=== PATIENT | male | born 2000 | race Caucasian/White ===

== ENCOUNTER 2022-10-13 18:45 | Emergency (ER) | payer OTHER ==
[2022-10-13 18:53] VITALS: BP 151/94
--- NOTE | 2022-10-13 18:53 | ED Physician Documentation ---
PD HPI LOWER EXT INJURY - Stated complaint Stated Complaint: R TOE INJ - Chief complaint Chief Complaint: Trauma Ext - History obtained from History obtained from: Patient (He was running in his house last night and jammed his right small toe into a door frame accidentally and has persistent pain and bruising there.) PD PAST MEDICAL HISTORY - Present Medications Home Medications: Ambulatory Orders Medication Instructions Recorded Confirmed No Known Home Medications 10/13/22 10/13/22 - Allergies Allergies/Adverse Reactions: Allergies Allergy/AdvReac Type Severity Reaction Status Date / Time No Known Drug Allergies Allergy Verified 10/13/22 18:52 PD ED PE NORMAL - Vitals Vital signs reviewed: Yes - General General: Alert and oriented X 3, No acute distress - Extremities Extremities: Other (Tender and swollen to the proximal pinky toe of the right foot. Bruise there as well. No deformity.) - Neuro Neuro: Alert and oriented X 3, Normal speech Results - Vitals Vitals: Vital Signs - 24 hr 10/13/22 18:50 Temperature 37 C Heart Rate 101 H Respiratory 14 Rate Blood Pressure 151/94 H O2 Saturation 98 Oxygen O2 Source Room air - Rads (name of study) Three-view x-ray of the right small toe demonstrates nondisplaced fracture of the proximal phalanx. Radiology: Final report received, EMP read indepedently Procedures - General procedure General procedure: Right fourth and fifth toes were paulina's taped in standard fashion for comfort. Departure - Departure Disposition: 01 Home, Self Care Clinical Impression: Toe fracture, right Qualifiers: Encounter type: initial encounter Toe: lesser toe Fracture type: closed Phalanx: proximal Fracture alignment: nondisplaced Qualified Code(s): S92.514A - Nondisplaced fracture of proximal phalanx of right lesser toe(s), initial encounter for closed fracture Condition: Good Record reviewed to determine appropriate education?: Yes Instructions: ED Fx Toe Closed Comments: Make sure your flight surgeon knows you are here and that you have a broken small toe, Follow-up with him or her within the week. Keep the paulina taped as shown and you can take Tylenol and/or ibuprofen as needed for pain. Wear closed toe shoes. You will have some level of pain we anticipate for 6 to 8 weeks but you should recover just fine. Discharge Date/Time: 10/13/22 19:16
--- NOTE | 2022-10-13 19:42 | XRAY Report ---
PROCEDURE: Toe(s) RT INDICATIONS: 5th toe inj TECHNIQUE: 3 views of the fifth toe(s) acquired. COMPARISON: None. FINDINGS: Bones: There is a lucency at the base of the fifth proximal phalanx, suspicious for nondisplaced frac ture. No suspicious bony lesions. Soft tissues: No suspicious soft tissue densities. IMPRESSION: Suspect nondisplaced fracture at the base of the fifth proximal phalanx. Reviewed by: Alie Victoria MD on 10/13/2022 7:40 PM PST Approved by: Alie Victoria MD on 10/13/2022 7:40 PM PST Station ID: [id number]
== END 2022-10-13 19:16 | disposition home or self-care (01) ==
LOC: ED 18:45
DX: S92.514A Nondisplaced fracture of proximal phalanx of right lesser toe(s), initial encounter for closed fracture (principal); W22.8XXA Striking against or struck by other objects, initial encounter; Y93.02 Activity, running
CPT/HCPCS: 99283